=== PATIENT | female | born 1960 | race Caucasian/White ===

== ENCOUNTER 2017-06-18 17:40 | Emergency (ER) | payer OTHER ==
[~2017-06-18] VITALS: Ht 152.4 cm; Wt 40.0 kg
[2017-06-18 17:46] VITALS: Ht 152.4 cm; Wt 40.0 kg
[2017-06-18] MEDS ORDERED: ACETAMINOPHEN 325 MG TAB PO ONE (18:30)
--- NOTE | 2017-06-18 19:04 | RADRPT ---
PROCEDURE: XR Lumbar Spine. CLINICAL INDICATION: Trauma TECHNIQUE: Two views of the lumbar spine are available for review COMPARISON: None available FINDINGS: There are 5 [id number] lumbar vertebral bodies. Vertebral body heights are preserved. There a re no acute fractures. There is moderate to severe disk space narrowing at L5-S1 with facet arthrop athy. The remaining disk spaces are maintained. Alignment is maintained. The bilateral sacroiliac joints and sacral and the sacral arcuate lines are intact. Mild atherosclerotic vascular calcifications are present. RPTAT: QQ IMPRESSION: 1. No acute fracture or malalignment of the lumbar spine. 2. Moderate to severe degenerative disk disease at L5-S1 with facet arthropathy. .Sharri Castañeda MD, MD Date Time Electronically viewed and signed by .Sharri Castañeda MD, on 06/18/2017 19:04 .T/
--- NOTE | 2017-06-18 19:09 | RADRPT ---
PROCEDURE: CT cervical spine without contrast CLINICAL INDICATION: Trauma, fall. Neck pain. TECHNIQUE: CT scan of the cervical spine was [facility] No IV contrast was administered. Coronal and sagittal reformatted images were obtained from th e axial source images. Images were reviewed on a high-resolution PACS workstation. One or more the f ollowing does reduction techniques were utilized: Automated exposure control, adjustment of the mA/ or kV according to patient's size, or use of iterative reconstruction technique. Exam CTDI = 22.24 m Gy and the DLP = 510.02 mGy-cm. COMPARISON: None available. FINDINGS: There is straightening of the alignment of the cervical spine with loss of the normal cervical lordo sis. Alignment remains intact. No acute fracture or dislocation is seen. The vertebral body heigh ts are preserved. No mass, hematoma, or other soft tissue abnormality is seen. There are multilevel mild degenerative changes of the cervical spine, manifested by osteophytosis an d disc height narrowing, most prominent at C6-C7. Uncovertebral osteophytes and facet arthropathy co ntribute to mild to moderate right foraminal stenosis at C6-C7. At C4-C5, there is a central disk extrusion measuring 4 x7 mm (AP x craniocaudal) which contributes to moderate spinal canal stenosis with impinging on the ventral spinal cord. The AP diameter of the spinal canal measures 7 mm. Posterior disk osteophyte complexes contribute to mild spinal canal narrowing at C3-C4 and C5-C6. There is fluid in the distal esophagus which may represent gastroesophageal reflux. Aortic atherosclerotic vascular calcifications are identified. IMPRESSION: 1. Straightening of normal cervical lordosis. 2. No acute fracture or traumatic subluxation. 3. Multilevel mild degenerative changes of the cervical spine, most prominent at C6-C7. 4. At C4-C5, a central disk extrusion measuring 4 x7 mm (AP x craniocaudal) which contributes to mo derate spinal canal stenosis with impinging on the ventral spinal cord. Cervical spine MRI can be ob tained for better evaluation as clinically warranted. 5. Posterior disk osteophyte complexes contribute to mild spinal canal narrowing at C3-C4 and C5-C6. 6. Aortic atherosclerosis. RPTAT: HFN .Livier Miller MD, MD Date Time Electronically viewed and signed by .Livier Miller MD, MD on 06/18/2017 19:09 .N/
--- NOTE | 2017-06-18 19:10 | RADRPT ---
PROCEDURE: CT Brain without. CLINICAL INDICATION: Trauma, pain. TECHNIQUE: A CT of the brain was performed on multidetector high-resolution CT scanner utilizing a xial sections from the skull base through the vertex without contrast. The scan was reviewed in sof t tissue brain and high frequency resolution bone algorithm windows. Images were reviewed on a high -resolution PACS workstation. One or more the following does reduction techniques were utilized: Aut omated exposure control, adjustment of the mA/ or kV according to patient's size, or use of iterativ e reconstruction technique. The exam CTDI = 44.95 mGy and the DLP = 720.23 mGy-cm. COMPARISON: None available. FINDINGS: The ventricles and sulci are age-appropriate per There is no intracranial hemorrhage, mass effect or midline shift. No abnormal intra-axial or extra-axial fluid collections are seen. The jha/white m atter differentiation is preserved. There are minimal scattered foci of hypoattenuation in the white matter, which are nonspecific in et iology but likely reflect chronic small vessel ischemic changes. The visualized paranasal sinuses a re essentially clear. IMPRESSION: 1. No acute intracranial hemorrhage, transcortical infarction or mass effect. 2. Minimal presumed chronic small vessel ischemic changes. RPTAT: HFN .Livier Miller MD, Date Time Electronically viewed and signed by .Livier Miller MD, MD on 06/18/2017 19:10 .N/
[2017-06-18] MEDS ORDERED: IBUP-1542 PO (19:19)
--- NOTE | 2017-06-18 19:21 | ERD ---
ER Documentation Chief Complaint Date/Time DATE: 06/18/17 TIME: 19:19 Chief Complaint Back/head pain x 1 day fell yesterday HPI Patient is a 56-year-old female who states that yesterday she was walking and carrying bags and she slipped secondary to wet floor and she fell backwards and she hit her head. She is not complaining of headache and lower back pain. She did not lose consciousness. Has been no nausea or vomiting or dizziness or photosensitivity or changes to her vision. She has not taken any medications for pain. She states the pain is worse in her head and lower back and rates it as a 8 out of 10. ROS All systems reviewed and are negative except as per history of present illness. Medications Home Meds Active Scripts Ibuprofen* (Motrin*) 600 Mg Tab, 600 MG PO Q6, #30 TAB Prov:LANA GARCIA PA-C 06/18/17 Allergies Allergies: Uncoded Allergies: PENICILLIN (Allergy, Intermediate, 06/18/17) PMhx/Soc Medical and Surgical Hx: pt denies Medical Hx Hx Alcohol Use: No Hx Substance Use: No Hx Tobacco Use: No FmHx Family History: No diabetes Physical Exam Vitals Vital Signs Date Time Temp Pulse Resp B/P Pulse Ox O2 Delivery O2 Flow Rate FiO2 06/18/17 17:46 97.8 81 16 106/52 99 Physical Exam General: well developed, well nourished, alert, nontoxic, no distress Head: normocephalic, atraumatic Eyes: PERRL, normal conjunctiva Neck: Supple, nontender, no lymphadenopathy, no midline tenderness Respiratory: Clear to auscaultation bilaterally, speaks in full sentences, no use of accesory muscles or labored breathing, no rales, ronchi, or wheezing Cardiovascular: RRR, No murmurs GI: soft, non tender, non distended, negative murphys sign, negative mcburneys point tenderness, no cva tenderness bilaterally, no rebound or guarding Back: no midline tenderness, no step offs or bony abnormalities, sensation to light touch in tact Neuro: CN 2-12 intact, normal speech, business and financial counsel strength 5/5 bilaterally, rapid alternating movements wnl, romberg and pronator drift wnl Results 24 hrs Current Medications Medications (Trade) Dose Ordered Sig/Brie Route PRN Reason Start Time Stop Time Status Last Admin Dose Admin Acetaminophen (Tylenol Tab) 650 mg ONCE ONCE PO 06/18/17 18:30 06/18/17 18:31 DC 06/18/17 18:29 Procedures/MDM Patient has had neck and back pain after fall yesterday. She is ambulatory neurovascular intact. Her vital signs are normal. CT scan of the cervical spine and brain were negative for any acute traumatic injury. Lumbar spine x- ray also negative for acute traumatic injury. Patient discharged with ibuprofen. Recommended this patient follow up with her primary care doctor within 48 hours or return to the emergency room for any worsening of symptoms. However this time I do believe there is suitable for outpatient management. I answered all their questions and they agreed with the plan and were discharged home. Departure Diagnosis: Primary Impression: Cervical strain Additional Impressions: Back pain Head injury Condition: Stable Patient Instructions: Back Pain (Acute Or Chronic), HEAD INJURY with Wake-Up ( Adult) Additional Instructions: Call your primary care doctor TOMORROW for an appointment during the next 1-2 days.See the doctor sooner or return here if your condition worsens before your appointment time. LANA GARCIA PA-C Jun 18, 2017 19:21
[2017-06-18 19:30] VITALS: BP 110/58; PULSE 75; RESP 16; TEMP 98.1
== END 2017-06-18 19:41 | disposition home or self-care (01) ==
LOC: FTE 17:40
DX: S16.1XXA Strain of muscle, fascia and tendon at neck level, initial encounter (principal); S39.92XA Unspecified injury of lower back, initial encounter; R51 Headache; W01.198A Fall on same level from slipping, tripping and stumbling with subsequent striking against other object, initial encounter; Y92.9 Unspecified place or not applicable
CPT/HCPCS: 70450; 72100; 72125; Z7502; Z7610

== ENCOUNTER 2017-08-13 22:54 | Emergency (ER) | payer OTHER ==
[~2017-08-13] VITALS: Ht 152.4 cm; Wt 38.5 kg
[~2017-08-13 22:54] MED LIST: IBUP-1542 PO
[2017-08-13 22:58] VITALS: Ht 152.4 cm; Wt 38.5 kg
[2017-08-14] MEDS ORDERED: AMLO-147 PO (01:38)
--- NOTE | 2017-08-14 01:40 | ERD ---
ER Documentation Chief Complaint Date/Time DATE: 08/14/17 TIME: 01:37 Chief Complaint Pt slipped in a puddle at a store r hip, shoulder, back and dye HPI 56-year-old female presents here in the ER for complains of right hip pain, right shoulder pain Right lower back pain, neck pain, headache after lifting and falling on the right side of the body today. Patient slipped in a pot of water. Patient did not lose consciousness after the injury. Patient denies any nausea or vomiting. Patient denies any fever or chills. Patient denies any limitation of movement of the joints. Patient describes the pain on affected areas throbbing pain, 4/10 scale, is worse upon movement of the affected joints. Patient does not complain of numbness or tingling. ROS All systems reviewed and are negative except as per history of present illness. Medications Home Meds Active Scripts Ibuprofen* (Motrin*) 600 Mg Tab, 600 MG PO Q6, #30 TAB Prov:LANA GARCIA PA-C 06/18/17 Reported Medications Amlodipine Besylate* (Amlodipine Besylate*) Unknown Strength Tablet, PO DAILY, # 30 TAB 08/14/17 Allergies Allergies: Uncoded Allergies: PENICILLIN (Allergy, Intermediate, 06/18/17) PMhx/Soc Hx Cardiac Disorders: Yes (htn) Hx Alcohol Use: No Hx Substance Use: No Hx Tobacco Use: No Smoking Status: Never smoker FmHx Family History: No coronary disease, No diabetes, No other Physical Exam Vitals Vital Signs Date Time Temp Pulse Resp B/P Pulse Ox O2 Delivery O2 Flow Rate FiO2 08/13/17 22:58 98.3 71 20 117/55 98 Physical Exam GENERAL: The patient is well developed and appropriate for usual state of health, in no apparent distress. CHEST: Clear to auscultation bilaterally. There are no rales, wheezes or rhonchi. HEART: Regular rate and rhythm. No murmurs, clicks, rubs or gallops. No S3 or S4. ABDOMEN: Soft, nontender and nondistended. Good bowel sounds. No rebound or guarding. No gross peritonitis. No gross organomegaly or masses. No Harley sign or McBurney point tenderness. BACK: No midline or flank tenderness.Tenderness on palpation on the right paraspinal aspect of the cervical spine, lumbar spine. EXTREMITIES:Patient is able to do full range of motion of the right shoulder and the right hip without any or should patient, tenderness on palpation on the right hip area, and the anterior and posterior aspect of the right shoulder. No deformity noted. Equal pulses bilaterally. There is no peripheral clubbing, cyanosis or edema. No focal swelling or erythema. Full range of motionof other joints of the body. Grossly neurovascularly intact. NEURO: Alert and oriented. Cranial nerves 2-12 intact. Motor strength in all 4 extremities with 5/5 strength. Sensation grossly intact. Normal speech and gait. Negative Romberg sign. Negative pronator drift. SKIN: There is no apparent rash or petechia. The skin is warm and dry. HEMATOLOGIC AND LYMPHATIC: There is no evidence of excessive bruising or lymphedema. No gross cervical, axillary, or inguinal lymphadenopathy. Results 24 hrs PROCEDURE: CT head, without contrast. CLINICAL INDICATION: Head injury. TECHNIQUE: Noncontrast CT examination of the head, with axial, sagittal and coronal reformatted images. Automated dose exposure control was employed. CTDI: 45.01 and DLP: 720.23. COMPARISON: CT head dated 06/18/2017 FINDINGS: No acute hemorrhage. Subarachnoid spaces are substantially preserved and symmetric. Ventricles are unremarkable. No mass effect. Mishra-white matter distinction is preserved without evident decreased attenuation to suggest acute or recent infarct. Sinuses and osseous structures are unremarkable. IMPRESSION: No acute process in the head. RPTAT: [facility] Physician Lopez Date Time Electronically viewed and signed by Physician Lopez on 08/14/2017 02:05 PROCEDURE: CT Cervical Spine. CLINICAL INDICATION: Neck pain, trauma TECHNIQUE: A CT of the cervical spine was performed utilizing thin section axial images from the skull base through the thoracic inlet. Sagittal and coronal reformatted images were made. The CTDIvol is 22.22 mGy and the DLP is 499.8 mGycm. One or more the following dose reduction techniques were utilized: Automated exposure control, adjustment of the mA and / or kV according to patient's size, or use of iterative reconstruction technique. COMPARISON: 06/18/2017 FINDINGS: No acute fracture or dislocation is seen. Mild degenerative disc changes at C6- 7. Uncovertebral degenerative changes greatest at C6-7. At C3-4 there is appearance of mild posterior central disc protrusion with impression on the anterior thecal sac. At C4-5 there is appearance of moderate posterior central disc protrusion with impression on the anterior spinal cord with moderate central spinal stenosis. At C5-6 there is appearance of mild posterior central disc protrusion with impression on the anterior thecal sac. Small amount of bilateral cervical carotid arterial calcification. Small punctate calcifications in bilateral parotid glands. IMPRESSION: No acute fracture or dislocation seen. Degenerative changes. At C3-4 there is appearance of mild posterior central disc protrusion with impression on the anterior thecal sac. At C4-5 there is appearance of moderate posterior central disc protrusion with impression on the anterior spinal cord with moderate central spinal stenosis. At C5-6 there is appearance of mild posterior central disc protrusion with impression on the anterior thecal sac. The study does not appear to be significantly changed compared to previous study. Please see above. RPTAT: HJES .Shahab Mckeon MD, MD Date Time Electronically viewed and signed by .Shahab Mckeon MD, MD on 08/14/2017 02:31 .S/ CC: [facility] PROCEDURE: XR Hip. CLINICAL INDICATION: Right hip pain status post fall. TECHNIQUE: AP and frog lateral views of the right hip were performed. COMPARISON: None. FINDINGS: There is normal mineralization and alignment. Calcific tendinosis of the insertional gluteus medius and gluteus minimus at the right greater trochanter. Findings are greater at the gluteus medius. No fracture or osseous lesion is identified. There are normal joints without evidence of arthritis or effusion. The soft tissues are unremarkable. IMPRESSION: 1. Calcific tendinosis of the insertional gluteus medius and gluteus minimus at the right greater trochanter. 2. No acute fracture. RPTAT: [facility] Phys[facility] Lopez Date Time Electronically viewed and signed by Physician Lopez on 08/14/2017 02:23 RS/ CC: [facility] NP PROCEDURE: CT Lumbar Spine. CLINICAL INDICATION: Pain, trauma TECHNIQUE: The study was performed on a multidetector CT scanner. Spiral axial 1 mm images were obtained through the lumbar spine and reformatted at 2.5 mm slice thickness. Sagittal and coronal reformations were created from the raw axial data. The images were reviewed on a PACS workstation. The administered radiation dose was CTDI vol = 6.37 mGy, DLP = 187.33 mGy-cm. One or more the following dose reduction techniques were utilized: Automated exposure control, adjustment of the mA and / or kV according to patient's size, or use of iterative reconstruction technique. COMPARISON: X-rays of the lumbar spine of 06/18/2017 FINDINGS: The vertebral bodies demonstrate normal height, alignment and osseous mineralization. Calcification in abdominal aorta, proximal right renal and bilateral iliac arteries. T12-L1: The disc and neuroforamina are unremarkable. L1-L2: The disc and neuroforamina are unremarkable. L2-L3: The disc and neuroforamina are unremarkable. L3-L4: The disc and neuroforamina are unremarkable. L4-L5: Mild diffuse disc bulge and ligamentum flavum hypertrophy with mild central spinal stenosis. L5-S1: Disc space narrowing, vacuum disc phenomenon, vertebral body osteophyte formation, diffuse disc bulge with mild to moderate bilateral foraminal stenosis. Mild degenerative changes at sacroiliac joints. There is a nonobstructing approximate 3 mm calculus in the mid left kidney. There is nonobstructing approximate 1 mm calcification in the mid right kidney. Appearance of dependent atelectasis at the visualized posterior lung bases. IMPRESSION: No acute fracture or dislocation seen. Degenerative changes. Mild central spinal stenosis at L4-5. Mild to moderate bilateral foraminal stenosis at L5- S1. Please see above. RPTAT: HJES .Shahab Mckeon MD, Date Time Electronically viewed and signed by .Shahab Mckeon MD, on 08/14/2017 02:39 .S/ CC: [facility] PROCEDURE: XR right shoulder. CLINICAL INDICATION: Right shoulder pain. TECHNIQUE: AP Internal and external rotation views of the right shoulder were performed. COMPARISON: None. FINDINGS: There is normal osseous mineralization and alignment. No acute fracture or osseous lesion is identified. There are normal joints without evidence of arthritis or dislocation. 15 mm dystrophic calcification adjacent to the medial aspect of the proximal humeral metaphysis. This may represent an osteochondral body at the inferior right shoulder joint capsule versus myositis ossificans versus less likely calcified lymph node. Calcific tendinosis may be present in the insertional posterior infraspinatus. The soft tissues are otherwise unremarkable. IMPRESSION: 1. Dystrophic calcification in the soft tissues at the medial aspect of the proximal right humeral diaphysis. 2. Calcific tendinosis may be present in the insertional posterior infraspinatus. 3. Otherwise, no acute fracture. Physician Lopez Date Time Electronically viewed and signed by Physician Lopez on 08/14/2017 02:26 RS/ CC: [facility] Procedures/[facility] Medical Decision Making: Patient's pain is most likely consistent with a contusion or a sprain of affected joints, also has degenerative changes noted. There is no suspicion for neurovascular compromise. Patient has intact sensation and circulation of the affected extremity. There is low suspicion for septic arthritis. Patient does not have any fever. Radiology exams of the affected area does not show any fracture or dislocation. Pt headache consistent with head contusion. There is low suspicion for neurological emergencies at this time since patients neurologic exam is normal. Patient did not have any altered level consciousness, vomiting, changes in balance or memory after incident. Patients CT scan of the head does not show any neurological emergencies at this time. Disposition: Home. Patient is given prescription for tylenol for pain, norco for severe pain. Patient was advised to elevate the affected area and apply ice on affected area. Patient was advised that if symptoms are worse, numbness, tingling, high fever, unable to move joint, worsening symptoms, to return to emergency department immediately. Otherwise, patient is advised to follow up with the primary care doctor in 5-7 days for reevaluation of symptoms. Disclaimer: Inadvertent spelling and grammatical errors are likely due to EHR/ dictation software use and do not reflect on the overall quality of patient care. Also, please note that the electronic time recorded on this note does not necessarily reflect the actual time of the patient encounter. Departure Diagnosis: Primary Impression: Head contusion Encounter type: initial encounter Contusion of head detail: scalp Qualified Code: S00.03XA - Contusion of scalp, initial encounter Additional Impressions: Neck pain Back pain Back pain location: low back pain Chronicity: acute Back pain laterality: bilateral Sciatica presence: without sciatica Qualified Code: M54.5 - Acute bilateral low back pain without sciatica Contusion, hip Encounter type: initial encounter Laterality: right Qualified Code: S70.01XA - Contusion of right hip, initial encounter Shoulder contusion Encounter type: initial encounter Laterality: right Qualified Code: S40.011A - Contusion of right shoulder, initial encounter Degenerative disc disease Mid-cervical spinal level: unspecified Condition: Stable Patient Instructions: Back Pain (Acute Or Chronic), Degenerative Disk Disease, Hip Contusion, Neck Sprain/Strain, Scalp Contusion, No Wake Up, Shoulder Contusion Additional Instructions: Patient is given prescription for tylenol for pain, norco for severe pain. Patient was advised to elevate the affected area and apply ice on affected area. Patient was advised that if symptoms are worse, numbness, tingling, high fever, unable to move joint, worsening symptoms, to return to emergency department immediately. Otherwise, patient is advised to follow up with the primary care doctor in 5-7 days for reevaluation of symptoms. [facility]EP [facility] NP Aug 14, 2017 01:40
--- NOTE | 2017-08-14 02:06 | RADRPT ---
PROCEDURE: CT head, without contrast. CLINICAL INDICATION: Head injury. TECHNIQUE: Noncontrast CT examination of the head, with axial, sagittal and coronal reformatted im ages. Automated dose exposure control was employed. CTDI: 45.01 and DLP: 720.23. COMPARISON: CT head dated 06/18/2017 FINDINGS: No acute hemorrhage. Subarachnoid spaces are substantially preserved and symmetric. Ventricles ar e unremarkable. No mass effect. Mishra-white matter distinction is preserved without evident decreased attenuation t o suggest acute or recent infarct. Sinuses and osseous structures are unremarkable. IMPRESSION: No acute process in the head. RPTAT: [facility] Physician Lopez Date Time Electronically viewed and signed by Physician Lopez on 08/14/2017 02:05 RS/
--- NOTE | 2017-08-14 02:24 | RADRPT ---
PROCEDURE: XR Hip. CLINICAL INDICATION: Right hip pain status post fall. TECHNIQUE: AP and frog lateral views of the right hip were performed. COMPARISON: None. FINDINGS: There is normal mineralization and alignment. Calcific tendinosis of the insertional gluteus medius and gluteus minimus at the right greater trochanter. Findings are greater at the gluteus medius. No fracture or osseous lesion is identified. There are normal joints without evidence of arthritis o r effusion. The soft tissues are unremarkable. IMPRESSION: 1. Calcific tendinosis of the insertional gluteus medius and gluteus minimus at the right greater tr ochanter. 2. No acute fracture. RPTAT: [facility] Physician Lopez Date Time Electronically viewed and signed by Physician Lopez on 08/14/2017 02:23 RS/
--- NOTE | 2017-08-14 02:26 | RADRPT ---
PROCEDURE: XR right shoulder. CLINICAL INDICATION: Right shoulder pain. TECHNIQUE: AP Internal and external rotation views of the right shoulder were performed. COMPARISON: None. FINDINGS: There is normal osseous mineralization and alignment. No acute fracture or osseous lesion is identified. There are normal joints without evidence of arthritis or dislocation. 15 mm dystrophic calcification adjacent to the medial aspect of the proximal humeral metaphysis. Thi s may represent an osteochondral body at the inferior right shoulder joint capsule versus myositis o ssificans versus less likely calcified lymph node. Calcific tendinosis may be present in the inserti onal posterior infraspinatus. The soft tissues are otherwise unremarkable. IMPRESSION: 1. Dystrophic calcification in the soft tissues at the medial aspect of the proximal right humeral d iaphysis. 2. Calcific tendinosis may be present in the insertional posterior infraspinatus. 3. Otherwise, no acute fracture. Physician Lopez Date Time Electronically viewed and signed by Physician Lopez on 08/14/2017 02:26 RS/
--- NOTE | 2017-08-14 02:32 | RADRPT ---
PROCEDURE: CT Cervical Spine. CLINICAL INDICATION: Neck pain, trauma TECHNIQUE: A CT of the cervical spine was performed utilizing thin section axial images from the skull base through the thoracic inlet. Sagittal and coronal reformatted images were made. The CTDI vol is 22.22 mGy and the DLP is 499.8 mGycm. One or more the following dose reduction techniques were utilized: Automated exposure control, adjus tment of the mA and / or kV according to patient's size, or use of iterative reconstruction techniqu e. COMPARISON: 06/18/2017 FINDINGS: No acute fracture or dislocation is seen. Mild degenerative disc changes at C6-7. Uncovertebral dege nerative changes greatest at C6-7. At C3-4 there is appearance of mild posterior central disc protru jonas with impression on the anterior thecal sac. At C4-5 there is appearance of moderate posterior c entral disc protrusion with impression on the anterior spinal cord with moderate central spinal sten osis. At C5-6 there is appearance of mild posterior central disc protrusion with impression on the a nterior thecal sac. Small amount of bilateral cervical carotid arterial calcification. Small punctat e calcifications in bilateral parotid glands. IMPRESSION: No acute fracture or dislocation seen. Degenerative changes. At C3-4 there is appearance of mild p osterior central disc protrusion with impression on the anterior thecal sac. At C4-5 there is appear ance of moderate posterior central disc protrusion with impression on the anterior spinal cord with moderate central spinal stenosis. At C5-6 there is appearance of mild posterior central disc protrus ion with impression on the anterior thecal sac. The study does not appear to be significantly change d compared to previous study. Please see above. RPTAT: HJES .Shahab Mckeon MD, MD Date Time Electronically viewed and signed by .Shahab Mckeon MD, MD on 08/14/2017 02:31 .S/
--- NOTE | 2017-08-14 02:39 | RADRPT ---
PROCEDURE: CT Lumbar Spine. CLINICAL INDICATION: Pain, trauma TECHNIQUE: The study was performed on a multidetector CT scanner. Spiral axial 1 mm images were o btained through the lumbar spine and reformatted at 2.5 mm slice thickness. Sagittal and coronal ref ormations were created from the raw axial data. The images were reviewed on a PACS workstation. The administered radiation dose was CTDI vol = 6.37 mGy, DLP = 187.33 mGy-cm. One or more the following dose reduction techniques were utilized: Automated exposure control, adjus tment of the mA and / or kV according to patient's size, or use of iterative reconstruction techniqu e. COMPARISON: X-rays of the lumbar spine of 06/18/2017 FINDINGS: The vertebral bodies demonstrate normal height, alignment and osseous mineralization. Calcification in abdominal aorta, proximal right renal and bilateral iliac arteries. T12-L1: The disc and neuroforamina are unremarkable. L1-L2: The disc and neuroforamina are unremarkable. L2-L3: The disc and neuroforamina are unremarkable. L3-L4: The disc and neuroforamina are unremarkable. L4-L5: Mild diffuse disc bulge and ligamentum flavum hypertrophy with mild central spinal stenosis. L5-S1: Disc space narrowing, vacuum disc phenomenon, vertebral body osteophyte formation, diffuse di sc bulge with mild to moderate bilateral foraminal stenosis. Mild degenerative changes at sacroiliac joints. There is a nonobstructing approximate 3 mm calculus in the mid left kidney. There is nonobstructing approximate 1 mm calcification in the mid right kidney. Appearance of dependent atelectasis at the v isualized posterior lung bases. IMPRESSION: No acute fracture or dislocation seen. Degenerative changes. Mild central spinal stenosis at L4-5. M ild to moderate bilateral foraminal stenosis at L5-S1. Please see above. RPTAT: HJES .Shahab Mckeon MD, Date Time Electronically viewed and signed by .Shahab Mckeon MD, MD on 08/14/2017 02:39 .S/
[2017-08-14] MEDS ORDERED: HYDR-906 PO (02:47)
[2017-08-14] MEDS ORDERED: ACET500C5 PO (02:47)
[2017-08-14 03:20] VITALS: PULSE 60; RESP 20; TEMP 98.2
== END 2017-08-14 03:18 | disposition home or self-care (01) ==
LOC: FTE 22:54
DX: S00.03XA Contusion of scalp, initial encounter (principal); S70.01XA Contusion of right hip, initial encounter; S40.011A Contusion of right shoulder, initial encounter; S19.9XXA Unspecified injury of neck, initial encounter; S39.92XA Unspecified injury of lower back, initial encounter; I10 Essential (primary) hypertension; W01.0XXA Fall on same level from slipping, tripping and stumbling without subsequent striking against object, initial encounter; Y92.9 Unspecified place or not applicable
CPT/HCPCS: 70450; 72125; 72131; 73030; 73510; Z7502

== ENCOUNTER 2017-11-05 23:18 | Emergency (ER) | payer OTHER ==
[~2017-11-05] VITALS: Ht 147.3 cm; Wt 37.5 kg
[~2017-11-05 23:18] MED LIST changes: +ACET500C5 PO; +AMLO-147 PO; +HYDR-906 PO
[2017-11-05 23:23] VITALS: Ht 147.3 cm; Wt 37.5 kg
[2017-11-06] MEDS ORDERED: ACET325T33 PO (00:08)
[2017-11-06] MEDS ORDERED: FAMO-96 PO (00:10)
[2017-11-06] MEDS ORDERED: LORA-186 PO (00:10)
[2017-11-06 00:19] VITALS: TEMP 98.2
--- NOTE | 2017-11-06 00:55 | ERD ---
ER Documentation Chief Complaint Chief Complaint sore throat, hoarse voice x 2 wks HPI This is a 56-year-old female presenting to the emergency department complaining of sore throat and hoarse voice for the past 1-2 weeks. Denies any fevers, cough, chest pain or shortness of breath. Patient has tried vacation ROS All systems reviewed and are negative except as per history of present illness. Medications Home Meds Active Scripts Loratadine* (Claritin*) 10 Mg Tablet, 10 MG PO DAILY, #10 TAB Prov:ABRAHAM WANG PA-C 11/06/17 Famotidine* (Pepcid*) 20 Mg Tablet, 20 MG PO DAILY, #10 TAB Prov:ABRAHAM WANG PA-C 11/06/17 Acetaminophen* (Tylenol*) 325 Mg Tablet, 2 TAB PO Q4 Y for PAIN AND OR ELEVATED TEMP, #20 TAB Prov:ABRAHAM WANG PA-C 11/06/17 Hydrocodone/Acetaminophen (Dixie 5-325 Tablet) 1 Each Tablet, 1 TAB PO Q6H Y for SEVERE PAIN LEVEL 7-10, #20 TAB Prov:GAGANDEEP GEORGE NP 08/14/17 Acetaminophen* (Tylophen*) 500 Mg Capsule, 1 CAP PO Q6H Y for PAIN AND OR ELEVATED TEMP, #20 CAP Prov:GAGANDEEP GEORGE [employer] 08/14/17 Ibuprofen* (Motrin*) 600 Mg Tab, 600 MG PO Q6, #30 TAB Prov:LANA GARCIA PA-C 06/18/17 Reported Medications Amlodipine Besylate* (Amlodipine Besylate*) Unknown Strength Tablet, PO DAILY, # 30 TAB 08/14/17 Allergies Allergies: Coded Allergies: Penicillins (Verified Allergy, Unknown, 11/05/17) ampicillin (Verified Allergy, Unknown, 11/05/17) PMhx/Soc Hx Cardiac Disorders: Yes (htn) Hx Alcohol Use: No Hx Substance Use: No Hx Tobacco Use: No Smoking Status: Never smoker Physical Exam Vitals Vital Signs Date Time Temp Pulse Resp B/P Pulse Ox O2 Delivery O2 Flow Rate FiO2 11/06/17 00:19 98.2 11/05/17 23:23 98.0 90 20 119/59 100 Physical Exam Const: WDWN Head: Atraumatic Eyes: Normal Conjunctiva ENT: Normal External Ears, Nose and Mouth. No evidence of tonsillar exudates and swelling. Coarse voice Neck: Full range of motion..~ No meningismus. Resp: Clear to auscultation bilaterally Cardio: Regular rate and rhythm, no murmurs Abd: Soft, non tender, non distended. Normal bowel sounds Skin: No petechiae or rashes Back: No midline or flank tenderness Ext: No cyanosis, or edema Neur: Awake and alert Psych: Normal Mood and Affect Procedures/MDM 56-year-old female presents to the emergency department with sore throat and hoarse voice for the past 1-2 weeks likely viral laryngitis. No evidence of strep pharyngitis, epiglottitis, peritonsillar abscess. Patient appears well and stable to be discharged home to follow-up with her primary care physician tomorrow for further evaluation management. I have given her prescription for Tylenol, Pepcid and Claritin. Discussed to return for worsening condition or not improving as expected. Departure Diagnosis: Primary Impression: Laryngitis Condition: Stable Patient Instructions: Laryngitis Additional Instructions: Visite a bower randell purcell para un EXAMEN.Regrese a estas instalaciones si no se mejora beth esperbamos o beth le dijimos. Regrese a estas instalaciones si no se mejora beth esperbamos o beth le dijimos. [place] toda la medicina aria y beth se le indic. ABRAHAM WANG PA-C Nov 06, 2017 00:55
== END 2017-11-06 00:19 | disposition home or self-care (01) ==
LOC: FTE 23:18
DX: J04.0 Acute laryngitis (principal); I10 Essential (primary) hypertension
CPT/HCPCS: 99283